=== PATIENT | female | born 2005 | race Caucasian/White ===

== ENCOUNTER 2024-05-06 19:03 | Emergency (ER) | payer SELFPAY ==
[~2024-05-06] VITALS: Ht 157.5 cm; Wt 73.5 kg
[2024-05-06 19:08] VITALS: BP 120/65; PULSE 111; RESP 16; TEMP 99.1; O2SAT 99
[2024-05-06 19:31] VITALS: O2SAT 98
[2024-05-06] MEDS: NACL 0.9% 1,000 ML IV SCH (20:23)
[2024-05-06 20:24] LABS: BASOPHILS % (AUTO) 0.4 % (0.0-2.0); EOSINOPHILS % (AUTO) 0.2 % (0.0-4.0); HEMATOCRIT 39.1 % (36-48); LYMPHOCYTES # (AUTO) 1.7 K/uL (2.5-16.5); LYMPHOCYTES % (AUTO) 19.1 % (20.5-51.1); MEAN CORPUSCULAR HEMOGLOBIN 29 pg (27-31); MEAN CORPUSCULAR HGB CONC 33 g/dL (33-37); MEAN CORPUSCULAR VOLUME 86.6 fL (80-94); MONOCYTES # (AUTO) 0.3 K/uL (0.8-1.0); MONOCYTES % (AUTO) 3.3 % (1.7-9.3); NEUTROPHILS # (AUTO) 6.7 K/uL (1.8-7.7); PLATELET COUNT (AUTO) 370 K/uL (140-450); RED BLOOD CELL COUNT(AUTO) 4.51 MIL/uL (4.20-5.40); WHITE BLOOD COUNT (AUTO) 8.7 K/uL (4.5-11.0)
[2024-05-06 20:36] LABS: ANION GAP 16.3 (8-16); CALCIUM 9.3 mg/dL (8.5-10.1); CARBON DIOXIDE 24.3 mmol/L (21-32); CREATININE 0.7 mg/dL (0.6-1.3); POTASSIUM 3.6 mmol/L (3.5-5.1)
[2024-05-06 20:48] LABS: BILIRUBIN,DIRECT 0.1 mg/dL (0.0-0.3); TOTAL BILIRUBIN 0.4 mg/dL (0.0-1.0); TOTAL PROTEIN, SERUM 7.9 g/dL (6.4-8.2)
[2024-05-07] MEDS: KETOROLAC 30 MG/ML VIAL IVP ONE (00:04)
[2024-05-07 00:14] VITALS: BP 133/63; PULSE 87; RESP 18; TEMP 98.1; O2SAT 99
== END 2024-05-07 00:14 | disposition home or self-care (01) ==
LOC: MED 19:03
DX: N83.201 Unspecified ovarian cyst, right side (principal)
CPT/HCPCS: 36415; 74176; 76830; 80048; 80076; 81025; 83690; 85025; 93976; 96361; 96374; 99285; J1885; J7030; Q0092